=== PATIENT | female | born 1985 | race Caucasian/White ===

== ENCOUNTER → 2020-08-25 | Outpatient (CLI) | payer OTHER ==
--- NOTE | 2020-08-25 20:52 | MR ---
EXAMINATION TYPE: MR brain wo/w con DATE OF EXAM: 08/25/2020 COMPARISON: None HISTORY: Weakness, MS CONTRAST: Performed utilizing 7 mL intravenous Gadavist gadolinium contrast. TECHNIQUE: Multiplanar, multisequence imaging of the brain is performed on a 3.0 Caitlin magnet. Demye linating disease protocol with additional Sagittal Flair sequence is performed. Study is performed wi thin 24 hours of arrival to the hospital. FINDINGS: T2 White Matter Lesions Present : No Approximate Number of Lesions: None Enhancing Lesion(s) Present: No Change from Prior: No prior Diffusion-weighted imaging is performed. No abnormal hyperintensity is present to suggest an acute i ntracranial infarct or acute ischemic change. Ventricles and sulci are appropriate for the patient age. There are no abnormal extra-axial fluid collections. The ventricular system and cisternal spaces are normal in size and appearance. The brain volume is age appropriate. The craniocervical junction jessica ears within normal limits. The dural venous sinuses appear patent. No abnormal enhancement is present on post contrast images. . The visualized sinuses are clear. Visu alized orbits are unremarkable. IMPRESSION: 1. Normal pre and postcontrast MRI brain. 2. Typical white matter hyperintensity is identified in association with multiple sclerosis are not r adiographically apparent on the current examination.
--- NOTE | 2020-08-25 20:55 | MR ---
EXAMINATION TYPE: MR lumbar spine wo con DATE OF EXAM: 08/25/2020 COMPARISON: None HISTORY: Weakness, MS CONTRAST: 0 mL intravenous Gadavist. TECHNIQUE: Multiplanar, multisequence images of the lumbar spine were acquired. FINDINGS: L5-S1: Disc desiccation is present. There is broad-based disc bulging into the central right paracent ral region with anterior thecal sac contact. Contact with the exiting right S1 nerve root may be pres ent. No spinal canal stenosis or neural foraminal stenosis is present. Disc desiccation is present. L4-L5: Some increased signal is present within the posterior disc space compatible with an annular te ar. No focal disc herniation or disc bulge is evident. No spinal canal stenosis or neural foraminal s tenosis present. Disc desiccation is present. L3-L4: No significant disc bulge or disc herniation. No spinal canal stenosis. No foraminal stenosi s. . L2-L3: No significant disc bulge or disc herniation. No spinal canal stenosis. No foraminal stenosi s. . L1-L2: No significant disc bulge or disc herniation. No spinal canal stenosis. No foraminal stenosi s. . T12-L1: No significant disc bulge or disc herniation. No spinal canal stenosis. No foraminal stenos is. . No signal abnormality within the visualized distal spinal cord is evident. The cord terminates at the L1 level. IMPRESSION: 1. No suspicious changes for multiple sclerosis. 2. Disc desiccation L4-5 L5-S1. 3. Small annular tear posterior L4-5 disc level
== END | disposition home or self-care (01) ==
LOC: RADMRIMAIN 18:33
PROVIDERS: ATTEND Psychiatry & Neurology Neurology
DX: R90.89 Other abnormal findings on diagnostic imaging of central nervous system (principal); G35 Multiple sclerosis; M51.26 Other intervertebral disc displacement, lumbar region; M51.27 Other intervertebral disc displacement, lumbosacral region; S34.104A Unspecified injury to L4 level of lumbar spinal cord, initial encounter
CPT/HCPCS: 70553; 72148; A9585

== ENCOUNTER → 2020-11-10 | Outpatient (CLI) | payer OTHER ==
--- NOTE | 2020-11-10 17:34 | MR ---
EXAMINATION TYPE: MR cervical spine wo/w con DATE OF EXAM: 11/10/2020 COMPARISON: None HISTORY: History of MS TECHNIQUE: Multiplanar, multisequence images of the cervical spine were acquired utilizing 6.5 mL intravenous Ga davist gadolinium contrast. Diffusion weighted imaging was performed. C2-C3: No evidence for degenerative disc disease. No disc bulge/herniation or protrusion. No Canal stenosis. Foramina are patent bilaterally. C3-C4: No evidence for degenerative disc disease. No disc bulge/herniation or protrusion. No Canal stenosis. Foramina are patent bilaterally. C4-C5: No evidence for degenerative disc disease. No disc bulge/herniation or protrusion. No Canal stenosis. Foramina are patent bilaterally. C5-C6: No evidence for degenerative disc disease. No disc bulge/herniation or protrusion. No Canal stenosis. Foramina are patent bilaterally. C6-C7: Small central posterior disc protrusion causes mild anterior mass effect on the thecal sac, no significant foraminal encroachment or spinal stenosis C7-T1: Small posterior disc protrusion is present causing minimal anterior mass effect on the thecal sac. No significant spinal stenosis or foraminal encroachment Cervical segments are intact. There is normal alignment. Cervical spinal cord is of normal signal. Craniovertebral junction relationships are within normal limits. No abnormal enhancement following contrast administration. Mild heterogeneous density noted within the thyroid gland incidentally. IMPRESSION: Mild degenerative disc disease. Additional findings above.
--- NOTE | 2020-11-11 06:57 | MR ---
EXAMINATION TYPE: MR thoracic spine wo con DATE OF EXAM: 11/10/2020 COMPARISON: NONE HISTORY: History of MS TECHNIQUE: Multiplanar, multisequence imaging of thoracic spine is performed without contrast, demyel inating disease protocol. FINDINGS: Coronal images show slight levoconvex scoliotic curvature in the upper to mid thoracic spin e. Spinal cord shows normal course caliber and signal as it courses the thoracic spine. Vertebral b flower heights are satisfactory. . Multilevel disc desiccation in the mid to lower lumbar spine. Mild d isc space narrowing is seen at a few levels in the mid to lower thoracic spine. Mild to minimal multi level anterior spurring. Bone marrow signal intensity is preserved. Sagittal images show posterior di sc herniations efface the anterior thecal sac at C7-T1 level sagittal image 9, T2-T3 level sagittal i mage 8, T8-T9 level sagittal image 8 and T10-T11 along with T11-T12 level sagittal image 7. Review of the axial images confirms the above disc herniation mildly effacing the anterior thecal sac , patent bilateral neural foramina. No additional disc herniations are evident. Visualized upper abdo men and thorax show no suspicious abnormality. No T2 hyperintense cord lesions noted. IMPRESSION: No MRI evidence for demyelinating disease involvement in the thoracic spinal cord. Slight scoliotic curvature with Mild multilevel degenerative changes as detailed above.
== END ==
LOC: RADMRIMAIN 15:36
PROVIDERS: ATTEND Psychiatry & Neurology Neurology
DX: M50.23 Other cervical disc displacement, cervicothoracic region (principal); M43.8X2 Other specified deforming dorsopathies, cervical region; M47.812 Spondylosis without myelopathy or radiculopathy, cervical region
CPT/HCPCS: 72146; 72156; A9585

== ENCOUNTER → 2021-09-10 | Outpatient (CLI) | payer OTHER ==
--- NOTE | 2021-09-11 06:17 | MR ---
EXAMINATION TYPE: MR lumbar spine wo con DATE OF EXAM: 09/10/2021 COMPARISON: 08/25/2020 HISTORY: Low back pain for several years Multiplanar multiecho imaging of the lumbar spine without contrast. Lumbar vertebrae have normal alignment. There is mild decreased signal in the disks at L4-5 and L5-S1 without significant loss of height. There are small posterior disc bulging at L4-5 and L5-S1. There is no spinal stenosis. There is developmentally adequate spinal canal. Facet joints are intact. There is no lumbar paraspinal mass. The lumbar neural foramina are fairly well-maintained. Sacroiliac joints appear intact. IMPRESSION: Minor degenerative disc changes in the lower lumbar spine. Posterior mild disc bulging at L4-5 and L5 -S1. There is some improvement in the disc bulging at L5-S1 compared to old exam.
== END | disposition home or self-care (01) ==
LOC: RADMRIMAIN 15:45
PROVIDERS: ATTEND Orthopaedic Surgery
DX: M51.36 Other intervertebral disc degeneration, lumbar region (principal); M51.26 Other intervertebral disc displacement, lumbar region; M51.27 Other intervertebral disc displacement, lumbosacral region
CPT/HCPCS: 72148

== ENCOUNTER 2024-06-08 22:16 | Emergency (ER) | payer OTHER ==
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
--- NOTE | 2024-06-08 23:48 | XR ---
EXAM: XR Left Knee, 3 Views CLINICAL HISTORY: ITS.REASON XR Reason: fall TECHNIQUE: Three views of the left knee. COMPARISON: No relevant prior studies available. FINDINGS: Bones/joints: Mild knee joint effusion. No acute fracture or subluxation. Soft tissues: Unremarkable. IMPRESSION: 1. No acute fracture or subluxation. 2. Mild knee joint effusion.
[2024-06-09] MEDS: BACITRACIN OINT 1 EACH PACKET TOPICAL ONE (00:26)
[2024-06-09] MEDS: Acetaminophen-Codeine 300-30mg TAB PO STA (00:26)
[2024-06-09 00:49] VITALS: BP 146/89; PULSE 87; RESP 16; TEMP 98.4
== END 2024-06-09 00:49 | disposition home or self-care (01) ==
LOC: EC 22:16
CPT/HCPCS: 99283

== ENCOUNTER 2025-03-16 20:22 | Emergency (ER) | payer OTHER ==
--- NOTE | 2025-03-16 20:39 | ED ---
General Adult HPI - General Chief complaint: Skin/Abscess/Foreign Body Stated complaint: Lumps on R Breast Time Seen by Provider: 03/16/25 20:35 Source: patient, RN notes reviewed Mode of arrival: ambulatory Limitations: no limitations - History of Present Illness Onset/Timin -: days(s) Location: chest Radiation: other (Right axilla) Severity scale (1-10): 8 Consistency: intermittent Improves with: immobilization Worsens with: movement Associated Symptoms: denies other symptoms Treatments Prior to Arrival: other (Tylenol) - Related Data Home Medications Medication Instructions Recorded Confirmed ALPRAZolam [Xanax] 0.25 mg PO DAILY PRN 04/16/22 04/16/22 Albuterol Sulfate [Proair Hfa] 1 - 2 puff INHALATION Q6HR PRN 04/16/22 04/16/22 Aspirin [Aspirin EC] 650 mg PO HS PRN 04/16/22 04/16/22 Baclofen 10 mg PO TID 04/16/22 04/16/22 DULoxetine HCL [Cymbalta] 60 mg PO BID 04/16/22 04/16/22 Ergocalciferol [Vitamin D2 (1250 1,250 mcg PO MO 04/16/22 04/16/22 Mcg = 60890 Iu)] Gabapentin [Neurontin] 300 mg PO TID 04/16/22 04/16/22 Levothyroxine Sodium 125 mcg PO DAILY 04/16/22 04/16/22 Meloxicam [Mobic] 15 mg PO DAILY PRN 04/16/22 04/16/22 Omeprazole [PriLOSEC] 40 mg PO AC-BRKFST 04/16/22 04/16/22 hydroCHLOROthiazide 12.5 mg PO DAILY 04/16/22 04/16/22 Allergies Allergy/AdvReac Type Severity Reaction Status Date / Time ibuprofen [From Motrin] Allergy Dyspnea Verified 03/16/25 20:28 Review of Systems ROS Statement: Those systems with pertinent positive or pertinent negative responses have been documented in the HPI. ROS Other: All systems not noted in ROS Statement are negative. Past Medical History Past Medical History: COPD, GERD/Reflux Additional Past Medical History / Comment(s): horse shoe kidneys, graves disease., numbness/tingling legs & feet, states swelling in legs & feet., DDD, bulging discs., lower back pain radiating to legs and sometimes to shoulders. History of Any Multi-Drug Resistant Organisms: None Reported Additional Past Surgical History / Comment(s): thyroid surgery., teeth extraction at [facility] (24 yrs old), thryoid removal Additional Past Anesthesia/Blood Transfusion Reaction / Comment(s): states 1 seizure after teeth extraction, claustrophobic Past Psychological History: Anxiety, Bipolar, Depression Smoking Status: Current every day smoker Past Alcohol Use History: Occasional Past Drug Use History: Marijuana - Past Family History Mother Family Medical History: Cancer Additional Family Medical History / Comment(s): liver cancer General Exam Limitations: no limitations General appearance: alert, in no apparent distress Head exam: Present: atraumatic, normocephalic, normal inspection Eye exam: Present: normal appearance, PERRL, EOMI. Absent: scleral icterus, conjunctival injection, periorbital swelling ENT exam: Present: normal exam, mucous membranes moist Neck exam: Present: normal inspection. Absent: tenderness, meningismus, lymphadenopathy Respiratory exam: Present: normal lung sounds bilaterally, chest wall tenderness, other (Positive point tenderness at right breast 11:11 o'clock position without obvious mass and 8 o'clock position adjacent to nipple with palpable mass. Negative obvious right axillary or parasternal lymphadenopathy). Absent: respiratory distress, wheezes, rales, rhonchi, stridor, accessory muscle use, decreased breath sounds, prolonged expiratory Cardiovascular Exam: Present: regular rate, normal rhythm, normal heart sounds. Absent: systolic murmur, diastolic murmur, rubs, gallop, clicks GI/Abdominal exam: Present: soft, normal bowel sounds. Absent: distended, tenderness, guarding, rebound, rigid Extremities exam: Present: normal inspection, full ROM, normal capillary refill. Absent: tenderness, pedal edema, joint swelling, calf tenderness Back exam: Present: normal inspection Neurological exam: Present: alert, oriented X3, CN II-XII intact Psychiatric exam: Present: normal affect, normal mood Skin exam: Present: warm, dry, intact, normal color. Absent: rash Course Vital Signs 03/16/25 20:24 Temperature 98 F Pulse Rate 61 Respiratory 18 Rate Blood Pressure 133/84 O2 Sat by Pulse 99 Oximetry Medical Decision Making - Medical Decision Making Was pt. sent in by a medical professional or institution (Dr., PA, FUSING MACHINE TENDER, urgent care, hospital, or care home...) When possible be specific @ -No Did you speak to anyone other than the patient for history (EMS, parent, family, police, friend...)? What history was obtained from this source @ -No Did you review nursing and triage notes (agree or disagree)? Why? @ -I reviewed and agree with nursing and triage notes Were old charts reviewed (outside hosp., previous admission, EMS record, old EKG, old radiological studies, urgent care reports/EKG's, care home records)? Report findings @ -No old charts were reviewed Differential Diagnosis (chest pain, altered mental status, abdominal pain women, abdominal pain men, vaginal bleeding, weakness, fever, dyspnea, syncope, headache, dizziness, GI bleed, back pain, seizure, CVA, palpatations, mental health, musculoskeletal)? @ -Differential Musculoskeletal Muscular strain, contusion, ligament sprain, fracture, arthritis, septic arthritis, bursitis, cellulitis, muscle spasm, nerve compression, DVT, arterial occlusion, herpes zoster, electrolyte abnormality, tumor.... This is not meant to be in all inclusive list EKG interpreted by me (3pts min.). @ -Not done X-rays interpreted by me (1pt min.). @ -None done CT interpreted by me (1pt min.). @ -None done U/S interpreted by me (1pt. min.). @ -Right breast ultrasound shows cystic structure What testing was considered but not performed or refused? (CT, X-rays, U/S, labs)? Why? @ -None What meds were considered but not given or refused? Why? @ -None Did you discuss the management of the patient with other professionals (professionals i.e. CINDY Rowe, FUSING MACHINE TENDER, lab, RT, psych nurse, criminal justice social worker, senior database programmer, teacher, home lending officer, keycase assembler)? Give summary @ -No Was smoking cessation discussed for >3mins.? @ -No Was critical care preformed (if so, how long)? @ -No Were there social determinants of health that impacted care today? How? (Homelessness, low income, unemployed, alcoholism, drug addiction, transportation, low edu. Level, literacy, decrease access to med. care, detention, rehab)? @ -No Was there de-escalation of care discussed even if they declined (Discuss DNR or withdrawal of care, Hospice)? DNR status @ -No What co-morbidities impacted this encounter? (DM, HTN, Smoking, COPD, CAD, Cancer, CVA, ARF, Chemo, Hep., AIDS, mental health diagnosis, sleep apnea, morbid obesity)? @ -None Was patient admitted / discharged? Hospital course, mention meds given and route, prescriptions, significant lab abnormalities, going to OR and other pertinent info. @ -Patient provided p.o. [place], with patient stating pain dropped from 8/10 to 4/10. Right breast ultrasound shows cystic mass with recommendation from radiologist for further imaging with mammogram. Patient advised to follow-up with [facility] for mammogram. Discussed patient with Dr. Roblero. Undiagnosed new problem with uncertain prognosis? @ -No Drug Therapy requiring intensive monitoring for toxicity (Heparin, Nitro, Insulin, Cardizem)? @ -No Were any procedures done? @ -No Diagnosis/symptom? @ -Breast cyst Acute, or Chronic, or Acute on Chronic? @ -Acute on chronic Uncomplicated (without systemic symptoms) or Complicated (systemic symptoms)? @ -Uncomplicated Side effects of treatment? @ -No Exacerbation, Progression, or Severe Exacerbation? @ -No Poses a threat to life or bodily function? How? (Chest pain, USA, [place], pneumonia, PE, COPD, DKA, ARF, appy, cholecystitis, CVA, Diverticulitis, Homicidal, Suicidal, threat to staff... and all critical care pts) @ -No Disposition Clinical Impression: Cyst of right breast Disposition: HOME SELF-CARE Condition: Fair Instructions (If sedation given, give patient instructions): Cyst (ED), Fibrocystic Breast Changes (ED) Additional Instructions: Tylenol every 4-6 hours as needed for pain. Apply warm compress for 10 minutes up to 4 times daily. Consider scheduling mammogram at [facility] in [facility]. Is patient prescribed a controlled substance at d/c from ED?: No Referrals: None,Stated [Primary Care Provider] - 1-2 days Padmini Reed MD [STAFF PHYSICIAN] - 1-2 days Albaro Rivas DO [STAFF PHYSICIAN] - 1-2 days Time of Disposition: 22:00
[2025-03-16] MEDS: HYDROcodone/APAP 7.5-325MG 1 EACH TAB PO ONE (20:55)
[2025-03-16] MEDS: ACET/COD 300 MG/30 MG STARTER PACK 6 TAB BTL PO STA (22:10)
[2025-03-16 22:25] VITALS: BP 122/80; PULSE 62; RESP 16; TEMP 97.4
== END 2025-03-16 22:14 | disposition home or self-care (01) ==
LOC: EC 20:22
DX: N60.01 Solitary cyst of right breast (principal); F17.200 Nicotine dependence, unspecified, uncomplicated; Z88.6 Allergy status to analgesic agent
CPT/HCPCS: 99283

== ENCOUNTER → 2025-04-04 | Outpatient (CLI) | payer OTHER ==
--- NOTE | 2025-04-04 08:11 | MM ---
Reason for Exam: Clinical finding. Risk Values: Mya 5 year model risk: 0.3%. NCI Lifetime model risk: 6.8%. Tissue Density: The breasts are heterogeneously dense, which may obscure small masses. Findings: Analyzed By CAD. Areas of palpable abnormality within the right breast on the medial aspect correlates to a focal asymmetry. No definitive finding in the right breast medial aspect. These are both seen on CC view. Overall Assessment: Incomplete: need additional imaging evaluation, BI-RAD 0 Management: Diagnostic Breast Ultrasound of the right breast. Results were given to the patient verbally at the time of exam. Patient should continue monthly self-breast exams. A clinical breast exam by your physician is recommended on an annual basis. This exam should not preclude additional follow-up of suspicious palpable abnormalities. Note on Mya scores and lifetime risk: 1. A Mya score greater than 3% is considered moderate risk. If this is the case, consider specialist referral to assess eligibility for a risk reducing agent. 2. If overall lifetime risk for the development of breast cancer is 20% or higher, the patient may qualify for future screening with alternating mammogram and breast MRI. [facility], , 04/04/2025 8:06 AM. Electronically signed and approved by: Alberto Domingo DO
--- NOTE | 2025-04-04 08:43 | USB ---
Reason for Exam: Clinical finding. Patient History: Menarche at age 10. Patient has no children. Risk Values: Mya 5 year model risk: 0.5%. NCI Lifetime model risk: 12.3%. Technique: Method: Targeted. Findings: The upper section of the breast of the right breast, the medial section of the breast of the right breast, the axilla of the right breast and the retroareolar of the right breast were scanned. Technique utilized:US breast limited RT Image; Ultrasound imaging of: Area of concern, retroareolar region and axilla. Selling Underwriter scanned areas of palpable abnormality per patient. No abnormalities identified on today's exam. Cyst seen at 10:00 5 cm from nipple on 03/16/2025 was not one of the palpable lesions/areas reported to the heat treater helper on today's exam. No evidence for organizing fluid collection or mass. Overall Assessment: Negative, BI-RAD 1 Management: Screening Mammogram of both breasts at age 42. A clinical breast exam by your physician is recommended on an annual basis and results should be correlated with mammographic findings. This exam should not preclude additional follow-up of suspicious palpable abnormalities. Results were given to the patient verbally at the time of exam. [facility], , 04/04/2025 8:39 AM. Electronically signed and approved by: Alberto Domingo DO
== END | disposition home or self-care (01) ==
LOC: RADMAMWWP 07:26
PROVIDERS: ATTEND Family Medicine
DX: N63.12 Unspecified lump in the right breast, upper inner quadrant (principal); N61.0 Mastitis without abscess; R92.333 Mammographic heterogeneous density, bilateral breasts
CPT/HCPCS: 77066; 76642; G0279; 77062